=== PATIENT | male | born 2000 | race Caucasian/White ===

== ENCOUNTER 2018-11-01 22:02 | Emergency (ER) | payer MEDICAID ==
--- NOTE | 2018-11-01 22:07 | Emergency Department Record ---
History of Present Illness - General Chief Complaint: Laceration(s) Stated Complaint: LACERATION TO FOOT Time Seen by Provider: 11/01/18 22:06 Source: Patient Mode of Arrival: Ambulatory Limitations: No limitations - History of Present Illness Initial Commments: 18 yo male presents to ED for evaluation of a laceration to the dorsum of the right foot sustained approximately 14 hours ago. Patient reports that he "cuts wood", and cut the foot with an axe. Patient denies other injury on examination , and reports that his tetanus status is UTD. Patient denies health problems at his baseline. Onset/Timin -: Hour(s) Extremity Location: Right: Foot Place: Home Context: Accidental Associated Symptoms: None Treatments Prior to Arrival: Bandage - [place] Coma Scale Eye Response: (4) Open spontaneously Motor Response: (6) Obeys commands Verbal Response: (5) Oriented [place] Total: 15 - Related Data Hx Tetanus Toxoid Vaccination: Yes Patient Tetanus UTD (within 5 yrs): Yes Home Medications Medication Instructions Recorded Confirmed Last Taken Dextroamphetamine/Amphetamine 30 mg PO BID 11/01/18 11/01/18 11/01/18 [Adderall] Allergies Allergy/AdvReac Type Severity Reaction Status Date / Time No Known Drug Allergies Allergy Verified 11/01/18 22:42 Review of Systems Constitutional: Denies: Chills, Fever, Malaise, Night sweats Eyes: Denies: Eye discharge, Eye pain ENT: Denies: Congestion, Ear pain, Epistaxis Respiratory: Denies: Cough, Dyspnea Cardiovascular: Denies: Chest pain, Paroxysmal nocturnal dyspnea Endocrine: Denies: Fatigue, Heat or cold intolerance Gastrointestinal: Denies: Abdominal pain, Nausea, Vomiting Genitourinary: Denies: Incontinence, Retention Musculoskeletal: Denies: Arthralgia, Back pain Skin: Reports: Other (Laceration to the foot). Denies: Bruising, Change in color Neurological: Denies: Abnormal gait, Confusion, Headache, Seizure Psychiatric: Denies: Anxiety Hematological/Lymphatic: Denies: Anemia, Blood Clots Physical Exam - General General Appearance: Alert, Oriented x3, Cooperative, Mild distress, Other ( Patient has difficulty sitting still, appears dissheveled, feet appear to have been in a damp enviroment for some time.) Limitations: No limitations - Head Head exam: Atraumatic, Normocephalic, Normal inspection Head exam detail: negative: Abrasion, Contusion, Carl's sign, General tenderness, Hematoma, Laceration - Eye Eye exam: Normal appearance. negative: Conjunctival injection, Periorbital swelling, Periorbital tenderness, Scleral icterus - ENT Ear exam: negative: Auricular hematoma, Auricular trauma Nasal Exam: negative: Active bleeding, Discharge, Dried blood, Foreign body Mouth exam: negative: Drooling, Laceration, Muffled voice, Tongue elevation - Neck Neck exam: Normal inspection. negative: Meningismus, Tenderness - Respiratory Respiratory exam: Normal lung sounds bilaterally. negative: Rales, Respiratory distress, Rhonchi, Stridor - Cardiovascular Cardiovascular Exam: Regular rate, Normal rhythm, Normal heart sounds - GI/Abdominal GI/Abdominal exam: Soft. negative: Rebound, Rigid, Tenderness - Rectal Rectal exam: Deferred - exam: Deferred - Extremities Extremities exam: Normal inspection. negative: Pedal edema, Tenderness - Back Back exam: Denies: CVA tenderness (R), CVA tenderness (L) - Neurological Neurological exam: Alert, Normal gait, Oriented X3 - Psychiatric Psychiatric exam: Normal affect, Normal mood - Skin Skin exam: Normal color. negative: Abrasion Type of lesion: negative: abrasion Course - Reevaluation(s) Reevaluation #1: 11/01/18 22:54 Right foot: Linear FB plantar surface of the right foot, likely chronic Possible non-displaced fracture at the base of the 1st metatarsal Procedure Note: 2.5 cm laceration to the right foot, bleeding controlled. Wound was cleaned and prepped in sterile fashion, no residual FB identified on examination. Wound was anesthetized with 1.5 mL of 1% Lidocaine with epinephrine with good anesthesia, and the laceration was irrigated extensively with 500 mL of sterile saline. Laceration was then repaired with 4-0 Prolene sutures (#6) in interrupted fashion. Patient tolerated the procedure well without complications. Patient was updated on the results of his radiographs, started on Keflex while in the ED. Wound was extensively irrigated prior to closure, no evidence for FB is present on examination. I discussed with both the patient and his neighbor at the need to keep the wound clean and dry, and to take his antibiotics as directed as the wound has a high risk of infection (axe injury, 14-hour delay, possible underlying fracture) . Patient was given (2) podiatrists to call for follow-up as well. Patient appears stable for discharge at this time. 11/01/18 23:00 Disposition Disposition: Discharge Clinical Impression: Foot laceration Qualifiers: Encounter type: initial encounter Laterality: right Qualified Code(s): S91.311A - Laceration without foreign body, right foot, initial encounter Metatarsal fracture Qualifiers: Encounter type: initial encounter Metatarsal bone: first Fracture type: open Fracture alignment: nondisplaced Laterality: right Qualified Code(s): S92.314B - Nondisplaced fracture of first metatarsal bone, right foot, initial encounter for open fracture Disposition: Home, Self-Care Condition: (2) Stable Instructions: Laceration (ED) Additional Instructions: Return to ED if your symptoms worsen or if you have any concerns. Keflex as directed. Follow-up with a Human Resources Advisor in 3-5 days as directed. Referrals: JED ELIAS D.P.M. [DOCTOR OF PODIATRY MEDICINE] - VIANEY MIRANDA [DOCTOR OF PODIATRY MEDICINE] - Forms: Patient Portal Access Time of Disposition: 23:01 Quality - Quality Measures Quality Measures: N/A - Blood Pressure Screening Does Patient Have Any of the Following: No Blood Pressure Classification: Hypertensive Reading Systolic Measurement: 155 Diastolic Measurement: 73 Screening for High Blood Pressure: < First Hypertensive BP, F/U Documented > [ G8950] First Hypertensive Follow-up Interventions: Referral to alternative/primary care provider.
[2018-11-01] MEDS ORDERED: CEPHALEXIN 500 MG CAPSULE PO STA (22:30)
--- NOTE | 2018-11-04 18:23 | RADIOLOGY REPORT ---
EXAM: FOOT, RIGHT 3 VIEWS HISTORY: PATIENT CUTTING WOOD THIS MORNING WITH RIGHT FOOT INJURY WITH LACERATION. TECHNIQUE: Three views right foot. COMPARISON: None. ENCOUNTER: Initial. FINDINGS: On both the AP and oblique view, there is an appearance quite suspicious for an essentially undisplaced fracture of the base of the first metatarsal extending into the first TMT articulation. Clinical correlation as to any point tenderness in this region suggested. There does appear to be a small skin defect overlying this region on the oblique view in particular, which may be an associated laceration. Elsewhere, no appearance to suggest a definite fracture of the right foot identified. There does appear to be a short linear metallic fine wire-like density in the soft tissues along the plantar surface of the foot posteriorly overlying the posterior aspect of the calcaneus. This is of uncertain age, seen on both the lateral and oblique view in particular, and correlation clinically as to the age and etiology of this suggested. IMPRESSION: 1. APPEARANCE QUITE SUSPICIOUS FOR AN ESSENTIALLY UNDISPLACED FRACTURE OF THE BASE OF THE FIRST METATARSAL EXTENDING INTO THE FIRST TMT ARTICULATION. THERE IS PROBABLY SOME MILD OVERLYING SOFT TISSUE DEFECT IN THIS LOCATION. 2. SHORT LINEAR FINE WIRE-LIKE FOREIGN BODY IN THE SOFT TISSUES ALONG THE PLANTAR SURFACE OF THE FOOT AND CLINICAL CORRELATION IS SUGGESTED. JOB NUMBER: [id number] [facility]
== END 2018-11-01 23:24 | disposition home or self-care (01) ==
LOC: ER 22:02
DX: S91.311A Laceration without foreign body, right foot, initial encounter (principal); S92.314A Nondisplaced fracture of first metatarsal bone, right foot, initial encounter for closed fracture; W27.0XXA Contact with workbench tool, initial encounter; Y93.H9 Activity, other involving exterior property and land maintenance, building and construction; Y92.007 Garden or yard of unspecified non-institutional (private) residence as the place of occurrence of the external cause
CPT/HCPCS: 12041; 99283; 99284

== ENCOUNTER 2019-03-12 20:23 | Emergency (ER) | payer MEDICAID ==
[2019-03-12] MEDS ORDERED: MORPHINE SULFATE 10MG/1ML **1ML VIAL IVP ONE ×2 (20:30→20:45)
[2019-03-12] MEDS ORDERED: CEFAZOLIN 2 Gram 2 GM/50 ML BAG IVPB ONE (20:31)
--- NOTE | 2019-03-12 20:34 | Emergency Department Record ---
History of Present Illness - General Chief Complaint: Laceration(s) Stated Complaint: LT FOOT CHAINSAW CUT Time Seen by Provider: 03/12/19 20:30 Source: Patient Mode of Arrival: Ambulatory Limitations: No limitations - History of Present Illness Initial Commments: 18 yo male presents after injuring his left medial foot with a chainsaw. He was cutting wood and cut through his shoe and sock into his foot. His last tetanus shot was 1 year ago. No other injuries. No allergies. -: Minutes(s) (20) Extremity Location: Left: Foot Place: Home Context: Accidental, Power tool use Associated Symptoms: Other (Pain) Treatments Prior to Arrival: Bandage - [place] Coma Scale Eye Response: (4) Open spontaneously Motor Response: (6) Obeys commands Verbal Response: (5) Oriented [place] Total: 15 - Related Data Hx Tetanus Toxoid Vaccination: Yes Year of Tetanus Vaccination: 2017 Allergies Allergy/AdvReac Type Severity Reaction Status Date / Time No Known Drug Allergies Allergy Verified 03/12/19 20:31 Review of Systems Constitutional: Denies: Chills, Fever, Malaise, Weakness Eyes: Denies: Eye discharge ENT: Denies: Congestion, Throat pain Respiratory: Denies: Cough, Dyspnea Cardiovascular: Denies: Chest pain, Syncope Endocrine: Denies: Fatigue, Polydipsia, Polyuria Gastrointestinal: Denies: Abdominal pain, Diarrhea, Nausea, Vomiting Genitourinary: Denies: Dysuria, Frequency, Hematuria Musculoskeletal: Reports: As per HPI, Arthralgia Skin: Denies: Bruising, Change in color, Rash Neurological: Denies: Headache Psychiatric: Denies: Anxiety Hematological/Lymphatic: Denies: Easy bleeding, Easy bruising Past Medical History - SOCIAL HISTORY Smoking Status: Current every day smoker Drug Use: None, Occasional Drug Use Detail:: Marijuana - RESPIRATORY Hx Respiratory Disorders: No - CARDIOVASCULAR Hx Cardio Disorders: No - NEURO Hx Neuro Disorders: No - GI Hx GI Disorders: No - Hx Genitourinary Disorders: No - ENDOCRINE Hx Endocrine Disorders: No - MUSCULOSKELETAL Hx Musculoskeletal Disorders: No - PSYCH Hx Psych Problems: No - HEMATOLOGY/ONCOLOGY Hx Hematology/Oncology Disorders: No Family Medical History Family Hx Comment (NOT TO BE USED IN PLACE OF ITEMS BELOW): denies Physical Exam - General General Appearance: Alert, Oriented x3, Cooperative, No acute distress Limitations: No limitations - Head Head exam: Atraumatic, Normal inspection - Eye Eye exam: Normal appearance, PERRL. negative: Conjunctival injection, Scleral icterus - ENT ENT exam: Normal exam Ear exam: Normal external inspection Nasal Exam: Normal inspection Mouth exam: Normal external inspection - Neck Neck exam: Normal inspection - Respiratory Respiratory exam: Normal lung sounds bilaterally. negative: Respiratory distress - Cardiovascular Cardiovascular Exam: Regular rate, Normal rhythm, Normal heart sounds Peripheral Pulses: 2+: Dorsalis Pedis (L) - Extremities Extremities exam: Normal capillary refill, Tenderness. negative: Normal inspection Image of Feet: 1 - jagged laceration of the medial distal foot - Back Back exam: Reports: Normal inspection - Neurological Neurological exam: Alert, Oriented X3 - Psychiatric Psychiatric exam: Anxious - Skin Type of lesion: Laceration Course Vital Signs 03/12/19 20:25 Pulse Rate [ 91 H Pulse Ox Probe] Respiratory 24 Rate Blood Pressure 126/69 [Right Arm] Pulse Ox 100 - Reevaluation(s) Reevaluation #1: 03/12/19 21:00 Ancef 2gm given The wounds were immediately cleaned on arrival wit 500ml irrigation XR was taken. No bony injury. NO FB Tetanus is up to date The wound was again copiously irrigated. Gross contamination present The is likely a tendon or fascia injury on the plantar most part of the injury The wound was continued to be irrigated with debris noted 03/12/19 21:04 03/12/19 21:13 Given the contamination and other possible structural injuries recommend transfer [facility] He accepts the patient for transfer 03/12/19 21:18 He is stable to go by car and has a reliable transportation Disposition Disposition: Transfer Clinical Impression: Foot laceration Qualifiers: Encounter type: initial encounter Laterality: left Qualified Code(s): S91.312A - Laceration without foreign body, left foot, initial encounter Disposition: Acute Care Hospital Transfer Transfer To: [facility] Reason For Transfer: Foot injury with tendon or fascia, contamination Accepting Physician: Rachelle Time Discussed w/Accepting Physician: 21:03 Condition: (2) Stable Forms: Patient Portal Access Time of Disposition: 21:04 Quality - Quality Measures Quality Measures: N/A - Blood Pressure Screening Does Patient Have Any of the Following: No Blood Pressure Classification: Pre-Hypertensive BP Reading Systolic Measurement: 143 Diastolic Measurement: 89 Screening for High Blood Pressure: < Pre-Hypertensive BP, F/U Documented > [G8950] Pre-Hypertensive Follow-up Interventions: Referral to alternative/primary care provider.
[2019-03-12] MEDS ORDERED: ONDANSETRON HCL IV 4 MG/2 ML VIAL IVP ONE (20:51)
[2019-03-12] MEDS ORDERED: CEFAZOLIN 1G VIAL IVPB ONE (20:51)
--- NOTE | 2019-03-14 06:24 | RADIOLOGY REPORT ---
EXAM: FOOT, LEFT 3 VIEWS HISTORY: CHAIN SAW INJURY, LACERATION. TECHNIQUE: Left foot, three views. COMPARISON: 11/01/18. ENCOUNTER: Initial. FINDINGS: Soft tissue laceration is noted medial to the first metatarsal. No radiopaque foreign bodies identified. There is no bone or joint abnormality. IMPRESSION: 1. NO EVIDENCE FOR FRACTURE OR RADIOPAQUE FOREIGN BODY. 2. FINDINGS WERE DISCUSSED WITH THE PATIENT'S E.R. PROVIDER AT THE TIME OF INTERPRETATION. JOB NUMBER: [id number] [facility]
== END 2019-03-12 21:30 | disposition short-term general hospital (02) ==
LOC: ER 20:23
DX: S91.312A Laceration without foreign body, left foot, initial encounter (principal); W31.2XXA Contact with powered woodworking and forming machines, initial encounter; Y93.9 Activity, unspecified; Y92.9 Unspecified place or not applicable; Y99.9 Unspecified external cause status
CPT/HCPCS: 96374; 96375; 96376; 99285; J0690; J2270; J2405

== ENCOUNTER 2019-05-13 00:33 | Emergency (ER) | payer MEDICAID ==
--- NOTE | 2019-05-13 00:42 | Emergency Department Record ---
History of Present Illness - General Chief Complaint: Animal Bite Stated Complaint: RIGHT HAND DOG BITE Time Seen by Provider: 05/13/19 00:38 Source: Patient Mode of Arrival: Ambulatory Limitations: No limitations - History of Present Illness Initial Comments: The patient is here due to a dog bite to the R hand an hour ago. He tried to get 2 dogs apart that were fighting and was bit in the R hand. He denies any numbness or tingling and his Td is UTD. The patient is not sure which dog bit him but his dogs shots are UTD and the other dog is his aunt's. He believes it is UTD. Complaint: Animal bite Onset/Timin -: Hour(s) - Related Data Previous Rx's Medication Instructions Recorded Amoxicillin/Potassium Clav 1 each PO BID #14 tablet 05/13/19 [Augmentin 875Mg/125Mg] Naproxen [Naprosyn] 500 mg PO BID #14 tablet. 05/13/19 Allergies Allergy/AdvReac Type Severity Reaction Status Date / Time No Known Drug Allergies Allergy Verified 03/12/19 20:31 Review of Systems Constitutional: Denies: Chills, Fever Past Medical History - SOCIAL HISTORY Smoking Status: Current every day smoker Drug Use: None, Occasional Drug Use Detail:: Marijuana - RESPIRATORY Hx Respiratory Disorders: No - CARDIOVASCULAR Hx Cardio Disorders: No - NEURO Hx Neuro Disorders: No - GI Hx GI Disorders: No - Hx Genitourinary Disorders: No - ENDOCRINE Hx Endocrine Disorders: No - MUSCULOSKELETAL Hx Musculoskeletal Disorders: No - PSYCH Hx Psych Problems: No - HEMATOLOGY/ONCOLOGY Hx Hematology/Oncology Disorders: No Family Medical History Family Hx Comment (NOT TO BE USED IN PLACE OF ITEMS BELOW): denies Physical Exam - General General Appearance: Alert, Oriented x3, Cooperative, No acute distress - Head Head exam: Atraumatic - Extremities Extremities exam: Normal capillary refill, Tenderness (There is tenderness over the dorsal hand over the 4th and 5th MC bones where the bite wounds are.). negative: Normal inspection (There are 2 1 cm dog bites to the dorsal R hand over the 4th and 5th MC bones. The fingers are NVI with normal extension except for the 5th finger which is a chronic problem for the patient and no different now. ) Image of Hand: 1 - 1.4 cm lac. 2 - 1.2 cm lac. Course - Reevaluation(s) Reevaluation #1: Procedure note: The R hand lacs were anesth. with a total of 3 cc's Lido 1% with Epi. The wounds were explored and no FB was found. The 2 wounds were then lavaged copiously with sterile saline. The wounds were then loosely sutured with a single 4.0 nylon suture each. There were no complications. 05/13/19 01:28 Medical Decision Making - Data Complexity MDM Data: X-Ray Ordered and/or Reviewed - Radiology Data Radiology results: Report reviewed (R hand: Neg for acute fx. Old 5th MC fx.) Disposition Disposition: Discharge Clinical Impression: Dog bite Qualifiers: Encounter type: initial encounter Qualified Code(s): W54.0XXA - Bitten by dog, initial encounter Disposition: Home, Self-Care Condition: (2) Stable Instructions: Animal Bite (ED) Additional Instructions: Please make sure both dog's rabies shots are UTD. Take Naprosyn for pain and continue the Augmentin. Please see your doctor for a wound recheck in 2 days or return to the ER. Have the sutures removed in 10 days. Prescriptions: Amoxicillin/Potassium Clav [Augmentin 875Mg/125Mg] 1 each PO BID #14 tablet Naproxen [Naprosyn] 500 mg PO BID #14 tablet.dr Forms: Patient Portal Access Time of Disposition: 01:31 Quality - Quality Measures Quality Measures: N/A - Blood Pressure Screening View Details: Yes Does Patient Have Any of the Following: No Blood Pressure Classification: Pre-Hypertensive BP Reading Systolic Measurement: 140 Diastolic Measurement: 86 Screening for High Blood Pressure: < Pre-Hypertensive BP, F/U Documented > [G8950] Pre-Hypertensive Follow-up Interventions: Referral to alternative/primary care provider.
[2019-05-13] MEDS ORDERED: AMOXICILLIN/POTASSIUM CLAV 875MG/125MG TABLET PO ONE (00:43)
[2019-05-13] MEDS ORDERED: IBUPROFEN 600 MG TABLET PO ONE (00:44)
--- NOTE | 2019-05-14 17:09 | RADIOLOGY REPORT ---
EXAM: HAND, RIGHT 3 VIEWS HISTORY: DOG BITE. TECHNIQUE: Three views of the right hand. COMPARISON: None. ENCOUNTER: Initial. FINDINGS: There is normal bone mineralization. No acute fracture, dislocation, or destructive bone lesion is seen. An old healed fracture deformity of the fifth metacarpal is present. The articular relations are grossly maintained. No periarticular erosion. There is focal lucency involving the soft tissues of the proximal hand at the ulnar aspect consistent with laceration/puncture wounds. No radiopaque foreign body. IMPRESSION: 1. NO ACUTE BONE NOR JOINT ABNORMALITY. OLD HEALED FRACTURE DEFORMITY OF THE FIFTH METACARPAL. 2. SOFT TISSUE SWELLING WITH PUNCTURE WOUND/LACERATION PROXIMALLY AND MEDIALLY. JOB [facility]BER: [id number] [facility]
== END 2019-05-13 01:56 | disposition home or self-care (01) ==
LOC: ER 00:33
DX: S61.411A Laceration without foreign body of right hand, initial encounter (principal); W54.0XXA Bitten by dog, initial encounter; Y92.009 Unspecified place in unspecified non-institutional (private) residence as the place of occurrence of the external cause; F17.210 Nicotine dependence, cigarettes, uncomplicated
CPT/HCPCS: 12042; 99283; 99284